=== PATIENT | male | born 1960 | race Caucasian/White ===

== ENCOUNTER 2023-08-03 13:38 | Outpatient (CLI) | payer OTHER | END 2023-08-03 13:39 | disposition home or self-care (01) | LOC: CSHCT 13:38 | PROVIDERS: ATTEND Student in an Organized Health Care Education/Training Program | DX: Z12.2 Encounter for screening for malignant neoplasm of respiratory organs (principal); F17.210 Nicotine dependence, cigarettes, uncomplicated; R05.3 Chronic cough; K80.20 Calculus of gallbladder without cholecystitis without obstruction; N28.1 Cyst of kidney, acquired; J44.9 Chronic obstructive pulmonary disease, unspecified | CPT/HCPCS: 71271; 94060; 94726; 94729; 94760 ==